=== PATIENT | male | born 1985 | race Two or more races ===

== ENCOUNTER 2017-07-06 18:31 | Emergency (ER) | payer OTHER ==
[~2017-07-06] VITALS: Ht 170.2 cm; Wt 63.5 kg
[~2017-07-06 18:31] MED LIST: CETI10TA22 PO; OXYM15MI4 NS
--- NOTE | 2017-07-06 19:03 | PHYS DOC ---
Past History Past Medical History: No Pertinent History Past Surgical History: Other Alcohol Use: None Drug Use: None Adult General Chief Complaint Chief Complaint: SORE THROAT HPI HPI Patient is a 32 year old male who presents with complaint of facial pain and sores to the lips. Patient states that 2 weeks ago he was experiencing symptoms of sore throat which persisted throughout the last 2 weeks. Patient states that currently has sore throat has resolved, however he started developing facial pain and sores along the right side of his face over the last 2 days. Patient states that the pain is burning in quality and radiates towards his right eye and the right side of his mouth. Patient denies any fevers. Patient denies any significant past medical history. Patient states that he tried taking naproxen for his symptoms with mild relief. Patient rates pain currently is 4 out of 10. Patient denies any changes in vision. Review of Systems Review of Systems Constitutional: Fatigue, denies fever or chills [] Eyes: Denies change in visual acuity, redness, or eye pain [] HENT: Denies nasal congestion or sore throat [] Respiratory: Denies cough or shortness of breath [] Cardiovascular: Denies chest pain or edema[] GI: Denies abdominal pain, nausea, vomiting, bloody stools or diarrhea [] : Denies dysuria or hematuria [] Musculoskeletal: Denies back pain or joint pain [] Integument: Sores to right side of mouth[] Neurologic: Burning pain to right side of face, denies headache or focal weakness[] All other systems were reviewed and found to be within normal limits, except as documented in this note. Allergies Allergies Allergies Coded Allergies Type Severity Reaction Last Updated Verified No Known Drug Allergies 11/19/15 No Physical Exam Physical Exam Constitutional: Alert, afebrile, no acute distress. [] HENT: Normocephalic, atraumatic, bilateral external ears normal, vesicular lesions present on the right lower and upper lip, no mucosal lesions present, oropharynx moist, no oral exudates, nose normal. [] Eyes: PERRLA, EOMI, conjunctiva normal, no discharge. [] Neck: Normal range of motion, no tenderness, supple, no stridor. [] Cardiovascular:Heart rate regular rhythm, no murmur [] Lungs & Thorax: Bilateral breath sounds clear to auscultation [] Abdomen: Bowel sounds normal, soft, no tenderness, no masses, no pulsatile masses. [] Skin: Warm, dry, no erythema, no rash. [] Back: No tenderness, no CVA tenderness. [] Extremities: No tenderness, no cyanosis, no clubbing, ROM intact, no edema. [] Neurologic: Alert and oriented X 3, normal motor function, normal sensory function, no focal deficits noted. [] Current Patient Data Vital Signs Vital Signs Date Time Temp Pulse Resp B/P (MAP) Pulse Ox O2 Delivery O2 Flow Rate FiO2 07/06/17 18:35 98.5 79 16 97 Room Air Lab Results Laboratory Tests Test 07/06/17 19:23 Bedside Hemoglobin 12.2 gm/dL Bedside Hematocrit 36 % Bedside Sodium 143 mmol/L Bedside Potassium 3.5 mmol/L Bedside Chloride 105 mmol/L Bedside Total CO2 26 mmol/L Anion Gap 17 mmol/L Bedside Blood Urea Nitrogen 18 mg/dL Bedside Creatinine 0.9 mg/dL Glucose Level 109 mg/dL Bedside Ionized Calcium (John) 1.20 mmol/L Current Medications Medications (Trade) Dose Ordered Sig/Juan Luis Route PRN Reason Start Time Stop Time Status Last Admin Dose Admin Valacyclovir HCl (Valtrex) 1,000 mg 1X STAT PO 07/06/17 19:40 07/06/17 19:41 DC Prednisone (Prednisone) 60 mg 1X ONCE PO 07/06/17 19:45 07/06/17 19:46 EKG EKG Interpreted by me: Heart rate 82, sinus rhythm, normal intervals, leftward axis , nonspecific T-wave inversion in lead 3, mild J-point elevation through lateral and precordial leads, no acute ST elevations or depressions[] Radiology/Procedures Radiology/Procedures Not performed[] Course & Med Decision Making Course & Med Decision Making Pertinent Labs and Imaging studies reviewed. (See chart for details) EKG shows no specific evidence of cardiac pathology and patient's i-STAT chemistry shows normal kidney function and normal electrolytes. The patient's symptoms appear consistent with shingles infection. The patient was started on Valtrex and prednisone in the emergency department. The patient will continue on seven-day course of Valtrex and a 5 day course of prednisone for treatment. Advise follow-up with primary doctor in 3 days for reevaluation and recommended return emergency department for any worsening symptoms. Patient voiced understanding and in agreement with treatment plan. Dragon Disclaimer Dragon Disclaimer This electronic medical record was generated, in whole or in part, using a voice recognition dictation system. Departure Departure: Impression: Primary Impression: Shingles Disposition: 01 HOME, SELF-CARE Condition: IMPROVED Referrals: KEVIN LAYTON MD (PCP) Patient Instructions: Shingles Additional Instructions: Follow-up to primary doctor in 3 days for reevaluation. Return to the emergency department for any worsening symptoms. Scripts Prednisone (PREDNISONE) 20 Mg Tablet 1 TAB PO TID, #15 TAB Prov: FOREST SANDERS MD 07/06/17 Valacyclovir Hcl (VALTREX) 1,000 Mg Tablet 1 TAB PO TID, #21 TAB Prov: FOREST SANDERS MD 07/06/17 Problem Qualifiers Primary Impression: Shingles Herpes zoster complications: without complications Qualified Codes: B02.9 - Zoster without complications FOREST SANDERS MD July 06, 2017 19:03
[2017-07-06 19:29] LABS: HEMOGLOBIN ISTAT 12.2 gm/dL; POTASSIUM ISTAT 3.5 mmol/L (3.5-5.0)
[2017-07-06] MEDS ORDERED: valACYclovir 500 MG TABLET. PO STA (19:40)
[2017-07-06] MEDS ORDERED: predniSONE 20 MG TABLET PO ONE (19:45)
[2017-07-06] MEDS ORDERED: PRED20TA PO (19:47)
[2017-07-06] MEDS ORDERED: VALA10005 PO (19:47)
[2017-07-06 19:59] VITALS: BP 122/72
--- NOTE | 2017-07-07 01:43 | EKG ---
[address] [address] Test Date: 2017-07-06 Test Time: 19:09:32 Pat Name: ADRIENNE RAMACHANDRAN Department: Room: Gender: M Executive Producer: : [id number] Requested By: FOREST SANDERS Order Number: [id number] Reading MD: Yasmany Velez MD Measurements Intervals [place] Rate: 82 P: 40 LA: 152 QRS: -4 QRSD: 82 T: 4 QT: 340 QTc: 400 Interpretive Statements SINUS RHYTHM Electronically Signed On 07-08-2017 12:23:18 CDT by Yasmany Velez MD
== END 2017-07-06 19:59 | disposition home or self-care (01) ==
LOC: ER 18:31
DX: B02.9 Zoster without complications (principal)
CPT/HCPCS: 36415; 80047; 85014; 85018; 93005; 99283; J7512